=== PATIENT | male | born 1990 | race Caucasian/White ===

== ENCOUNTER 2022-01-10 21:14 | Emergency (ER) | payer MEDICAID, SELFPAY ==
[2022-01-10 21:14] VITALS: BP 110/78; PULSE 49; RESP 16; TEMP 35.8; O2SAT 100; BMI 19.3
--- NOTE | 2022-01-10 21:15 | CT_ITS ---
PROCEDURE INFORMATION: Exam: CT Abdomen And Pelvis With Contrast Exam date and time: 01/10/2022 9:31 PM Age: 31 years old Clinical indication: Abdominal pain TECHNIQUE: Imaging protocol: Computed tomography of the abdomen and pelvis with contrast. Radiation optimization: All CT scans at this facility use at least one of these dose optimization techniques: automated exposure control; mA and/or kV adjustment per patient size (includes targeted exams where dose is matched to clinical indication); or iterative reconstruction. Contrast material: ISOVUE; Contrast volume: 75 ml; Contrast route: IV; COMPARISON: ABDPELW/O CT ABD PELVIS W/O CONTRAST 05/29/2015 10:11 PM FINDINGS: Diaphragm: Small hiatal hernia. Liver: Normal. No mass. Gallbladder and bile ducts: Normal. No calcified stones. No ductal dilation. Pancreas: Normal. No ductal dilation. Spleen: Normal. No splenomegaly. Adrenal glands: Normal. No mass. Kidneys and ureters: Normal. No hydronephrosis. Stomach and bowel: Unremarkable. No obstruction. No mucosal thickening. Appendix: No evidence of appendicitis. Intraperitoneal space: Unremarkable. No free air. No significant fluid collection. Vasculature: Unremarkable. No abdominal aortic aneurysm. Lymph nodes: Unremarkable. No enlarged lymph nodes. Urinary bladder: Unremarkable as visualized. Reproductive: Unremarkable as visualized. Bones/joints: Unremarkable. No acute fracture. Soft tissues: There is a a radiopaque density with associated artifact in the subcutaneous tissues of the left anterior abdominal wall just superior and lateral to the umbilicus. Clinically correlate. Findings suggestive of a retained metallic foreign body. IMPRESSION: 1. Small hiatal hernia. 2. Retained metallic foreign body within the subcutaneous tissues superficial to the left anterior abdominal wall. Clinically correlate.
--- NOTE | 2022-01-10 21:15 | XR_ITS ---
PROCEDURE INFORMATION: Exam: XR Chest Exam date and time: 01/10/2022 9:21 PM Age: 31 years old Clinical indication: Pain; Other: Upper abdominal; Additional info: Upper abd pain TECHNIQUE: Imaging protocol: XR of the chest. Views: 1 view. COMPARISON: CR CXR2V XR chest 2V 06/25/2018 12:42 AM FINDINGS: Lungs: Unremarkable. No consolidation. Pleural spaces: Unremarkable. No pleural effusion. No pneumothorax. Heart/Mediastinum: Unremarkable. No cardiomegaly. Bones/joints: Unremarkable. IMPRESSION: No acute findings.
--- NOTE | 2022-01-10 21:16 | [facility].EDGENADL ---
ED Disposition Clinical Impression: Marijuana use Nausea and vomiting Qualifiers: Vomiting type: unspecified Qualified Code(s): R11.2 - Nausea with vomiting, unspecified Disposition: Home, Self-Care Condition on Discharge: Fair Additional Instructions: You have been evaluated for nausea and vomiting. This is possibly due to marijuana use. Your potassium level is low today. Please take 20 mg of potassium daily. Eat a balanced diet. Take daily multivitamin. Zofran for nausea. Avoid marijuana. Follow-up with your primary care doctor. Return to the emergency department for any new or worsening symptoms, persistent vomiting, abdominal pain, other concerns. Prescriptions: Potassium Chloride [Pot Chlor 20 mEq Packet] 20 meq PO DAILY #5 packet Transmission Status: Pending to [facility] 1960 Ondansetron [Zofran 4mg ODT] 4 mg PO TIDP PRN #12 tab PRN Reason: Nausea Transmission Status: Pending to [facility] 1960 Referrals: Don Leggett [Primary Care Provider] - Time of Disposition: 00:17 - Critical Care Critical Care Time: No Attestation: On , the high probability of a clinically significant, sudden or life threatening deterioration of the following system(s) required my full and direct attention, intervention and personal management. The time I documented below is in addition to time spent performing reported procedures but includes the following listed in this critical care notation. Medical Decision Making - Medical Records Medical records reviewed: Yes: I reviewed the patient's medical records. - Cornel Inquiry Pt receiving controlled substance: No Vital Signs: 01/10/22 21:14 01/10/22 23:07 Temperature 96.5 F L 97.6 F Temperature Source Rectal Oral Pulse Rate 47 L Pulse Rate [Right] 49 L Respiratory Rate 16 16 Blood Pressure 116/61 Blood Pressure [Right Arm] 110/78 Blood Pressure Mean [Right Arm] 88 Blood Pressure Source Automatic Cuff Blood Pressure Source [Right Arm] Automatic Cuff Blood Pressure Position Sitting 02 Sat by Pulse Oximetry 100 Oxygen Delivery Method Room Air Room Air - Lab Data Lab Results 01/10/22 21:15: WBC 11.1 H, RBC 4.48 L, Hgb 13.8 L, Hct 41.1 L, MCV 91.6, MCH 30.9, MCHC 33.7, RDW 13.4, Plt Count 179, MPV 9.3, Neut % (Auto) 74.9, Lymph % (Auto) 17.3, [place] % (Auto) 6.1, Eos % (Auto) 0.6, Baso % (Auto) 1.1, Neut # (Auto) 8.3 H, Lymph # (Auto) 1.9, [place] # (Auto) 0.7, Eos # (Auto) 0.1, Baso # (Auto) 0.1 01/10/22 21:15: Sodium 142, Potassium 3.1 L, Chloride 107, Carbon Dioxide 26, Anion Gap 12.1, BUN 22 H, Creatinine 0.90, Estimated Creat Clear 102, Estimated GFR 98, Est GFR ( Amer) 118, Glucose 112 H, Calcium 9.0, Total Bilirubin 0.9, AST 37, ALT 36, Alkaline Phosphatase 86, Total Protein 7.0, Albumin 4.2, Globulin 2.8, Albumin/Globulin Ratio 1.5, Lipase 149 01/10/22 21:15: Lactate 2.3 H 01/10/22 21:15: Procalcitonin 0.039, TSH 4.05 01/10/22 21:29: Urine Color Yellow, Urine Appearance Clear, Urine pH 8.5, Ur Specific [place] 1.020, Urine Protein Trace, Urine Glucose (UA) Negative, Urine Ketones 2+, Urine Blood Negative, Urine Nitrate Negative, Urine Bilirubin Negative, Urine Urobilinogen 0.2, Ur Leukocyte Esterase Negative, Urine WBC Occasional, Amorphous Sediment Trace 01/10/22 21:29: Urine Opiates Screen Negative, Urine Methadone Screen Negative, Ur Barbituates Screen Negative, Ur Phencyclidine Scrn Negative, Ur Amphetamines Screen Negative, U Benzodiazepines Scrn Negative, Urine Cocaine Screen Negative, U Marijuana (THC) Screen Positive H 01/10/22 21:50: VBG pH 7.50 H, VBG pCO2 28.8 L, VBG pO2 90.5 H, VBG HCO3 22.1 L, VBG Total CO2 22.9 L, VBG O2 Saturation 98.2 H, VBG Base Excess -1.1 Result diagrams: 01/10/22 21:15 01/10/22 21:15 Orders (Tests/Meds): ED MEDICATIONS Discontinued Medications Generic Name Dose Route Start Last Admin Trade Name Freq PRN Reason Stop Dose Admin Diphenhydramine HCl 12.5 mg 01/10/22 22:56 01/10/22 22:5
[2022-01-10 21:55] LABS: Basophils # 0.1 K/mm3 (0-0.2); Basophils % 1.1 % (0.1-2.0); Eosinophils # 0.1 K/mm3 (0.0-0.4); Eosinophils % 0.6 % (0.1-12.0); Hematocrit 41.1 % (42.0-52.0); Hemoglobin 13.8 g/dL (14.1-18.0); Lymphocytes # 1.9 K/mm3 (0.7-4.5); Lymphocytes % 17.3 % (10-50); Mean Corpuscular HGB Conc 33.7 g/dL (31.8-35.4); Mean Corpuscular Hemoglobin 30.9 pg (27.0-31.2); Mean Corpuscular Volume 91.6 fl (80-94); Mean Platelet Volume 9.3 fl (7.4-10.4); Monocytes # 0.7 K/mm3 (0.1-1.0); Monocytes % 6.1 % (1.7-9.3); Neutrophils # 8.3 K/mm3 (1.8-7.8); Neutrophils % 74.9 % (37.0-80.0); Platelet Count 179 K/mm3 (142-424); Red Blood Count 4.48 M/mm3 (4.60-6.20); Red Cell Distribution Width 13.4 % (11.5-17.5); White Blood Count 11.1 K/mm3 (4.8-10.8)
[2022-01-10 21:55] LABS: Microscopic, Urine URINE MICROSCOPIC (MICROSCOPIC)
[2022-01-10 21:56] LABS: Chloride 107 mmol/L (98-107)
[2022-01-10 21:57] LABS: Potassium 3.1 mmoL/L (3.5-5.1); Sodium 142 mmol/L (136-145)
[2022-01-10 21:59] LABS: Alanine Aminotransferase 36 U/L (12-78); Alkaline Phosphatase 86 U/L (38-126); Aspartate Amino Transferase 37 U/L (17-59); Bilirubin,Total 0.9 mg/dl (0.2-1.3); Blood Urea Nitrogen 22 mg/dl (9-20); Creatinine Clearance Estimated 102 mL/min (50-200); Estimated Glomerular Filt Rate 98 ml/min (>60); GFR (African American) 118 ML/MIN (>60)
[2022-01-10 22:00] LABS: Albumin Level 4.2 g/dl (3.5-5.0); Albumin/Globulin Ratio 1.5 (1.1-1.8); Anion Gap 12.1 mEq/L (5-15); Carbon Dioxide 26 mmol/L (22.0-30.0); Globulin 2.8 g/dL (1.3-3.2); Glucose 112 mg/dl (74-100); Lipase 149 U/L (23-300)
[2022-01-10 22:02] VITALS: BP 110/47; PULSE 47; RESP 10; O2SAT 99
[2022-01-10 22:03] LABS: Appearance,Urine CLEAR (Clear); Bilirubin,Urine Negative (Negative); Blood, Urine Negative (Negative); Color,Urine YELLOW (Yellow); Glucose,Urine (UA) Negative (Negative); Ketones,Urine 2+ (Negative); Leukocyte Esterase,Urine Negative (Negative); Nitrate,Urine Negative (Negative); PH,Urine 8.5 (5.0-8.5); Protein,Urine TRACE (Negative); Urobilinogen,Urine 0.2 EU/dl (0.2)
[2022-01-10 22:13] LABS: Lactic Acid 2.3 mmol/L (0.7-2.1)
[2022-01-10 22:16] LABS: Barbiturates Screen,Urine Negative ng/ml (<200)
[2022-01-10 22:17] LABS: Amorphous Sediment,Urine Trace /lpf; Amphetamine/Metha Screen,Urine Negative ng/ml (<1000); Benzodiazepines Screen,Urine Negative ng/ml (<200); WBC,Urine Occasional #/hpf (0-3)
[2022-01-10 22:17] LABS: VBG Base Excess -1.1 mmol/L (-2.4-2.3); VBG HCO3 22.1 mmol/L (23-30); VBG Oxygen Saturation 98.2 % (50-70); VBG PCO2 28.8 mmol/L (35-51); VBG PO2 90.5 mmol/L (28-40); VBG Total CO2 22.9 mmol/L (23-27)
[2022-01-10 22:18] LABS: Cannabinoid Screen,Urine Positive ng/ml (<50); Methadone Screen,Urine Negative ng/ml (<300)
[2022-01-10 22:19] LABS: Cocaine Screen,Urine Negative ng/ml (<300)
[2022-01-10 22:20] LABS: Opiate Screen,Urine Negative ng/ml (<300); Phencyclidine Screen,Urine Negative ng/ml (<25)
[2022-01-10 22:22] LABS: Procalcitonin 0.039 ng/mL (0.0-2.0)
--- NOTE | 2022-01-10 22:27 | ECG_ITS ---
APPROVED REPORT Exam: Resting ECG HR:52 bpm ECG Measurements Heart Rate 52 AXES VT 138 P 81 QRSd 102 QRS 78 QT 426 T 83 QTc 406 Conclusion SINUS BRADYCARDIA POSSIBLE RIGHT VENTRICULAR CONDUCTION DELAY [RSR (QR) IN V1/V2] BORDERLINE ECG UNCONFIRMED REPORT Electronically signed by : Lopez Noyola MD 01/12/2022 19:48:53
[2022-01-10 22:36] LABS: Thyroid Stimulating Hormone 4.05 uIU/mL (0.465-4.68)
[2022-01-10 23:07] VITALS: BP 116/61; PULSE 47; RESP 16; TEMP 36.4; O2SAT 100
[2022-01-10 23:13] VITALS: BP 116/61; PULSE 49; RESP 14; O2SAT 100
[2022-01-10 23:30] VITALS: BP 99/36; PULSE 64; RESP 12; O2SAT 99
[2022-01-11] VITALS: BP 84/58; PULSE 50; RESP 10; O2SAT 100
== END 2022-01-11 00:57 | disposition home or self-care (01) ==
PROVIDERS: Emergency Provider Emergency Medicine; PCP Pediatrics
DX: R10.10 Upper abdominal pain, unspecified (principal); R11.2 Nausea with vomiting, unspecified; F12.10 Cannabis abuse, uncomplicated
CPT/HCPCS: 71045; 74177; 80053; 80305; 81001; 82803; 83605; 83690; 84145; 84443; 85025; 93005; 96365; 96375; 99284; J2405; Q9967

== ENCOUNTER 2022-07-23 09:41 | Emergency (ER) | payer MEDICAID, SELFPAY ==
[2022-07-23 09:53] VITALS: BP 127/61; PULSE 62; RESP 16; O2SAT 100; BMI 18.1
[2022-07-23 10:02] VITALS: BP 127/61; PULSE 62; RESP 16; TEMP 36.8; O2SAT 100; BMI 18.1
--- NOTE | 2022-07-23 10:49 | EXP.UTC ---
Discharge Plan Disposition Patient Disposition: Home, Self-Care Condition: Good Prescriptions Prescriptions: New ondansetron 4 mg Tablet,Disintegrating 4 mg PO Q8H PRN (Reason: Nausea) Qty: 20 0RF dicyclomine 10 mg capsule 10 mg PO TID PRN (Reason: abdominal cramping) Qty: 20 0RF No Action escitalopram oxalate 10 MG tablet 10 mg PO DAILY ondansetron 4 MG tablet,disintegrating 4 mg PO TIDP PRN (Reason: Nausea) Qty: 12 0RF potassium chloride 20 MEQ packet 20 meq PO DAILY Qty: 5 0RF Referrals Follow up/Referrals: Don Leggett [Primary Care Provider] - See instructions Activity Restrictions/Add. Instructions Additional Instructions/Restrictions: Drink plenty of fluids. Take tylenol for pain or fever. Take the medications as directed. Follow up with your regular doctor. GO TO THE ER FOR ANY WORSENING SYMPTOMS If your symptoms worsen or continue, please return and go through the ER for further evaluation. Clinical Impressions Clinical Impression: Abdominal pain Instructions Patient Instructions: DI for Viral Gastroenteritis -- Adult Discharge ED Provider: Noah Varela [facility] General Stated complaint: vomiting, unable to eat or drink Mode of Arrival: Ambulatory Source of Information: Patient Limitations: No Limitations Time Seen by Provider: 07/23/22 10:46 Description of Symptoms (Recalled from Triage Doc. by RN): PATIENT C/O NAUSEA AND VOMITING SINCE SATURDAY MORNING HEENT Symptoms (Recalled from RN notes): No Resp Symptoms (Recalled from RN notes): No Skin Symptoms (Recalled from RN notes): No MS Symptoms (Recalled from RN notes): No Functional Status (Recalled from RN notes): WNL History of Present Illness Provider Complaint: He c/o n/v since yesterday. He has had abdominal cramping, but no diarrhea. He had a normal bm last night. Related Data Home Medications Medication Instructions Recorded Confirmed escitalopram oxalate 10 mg tablet 10 mg PO DAILY bipolar 01/10/22 01/10/22 Previous Rx's Medication Instructions Recorded ondansetron 4 mg disintegrating 4 mg PO TIDP PRN Nausea #12 tabs 01/11/22 tablet potassium chloride 20 mEq oral 20 meq PO DAILY #5 packets 01/11/22 packet dicyclomine 10 mg capsule 10 mg PO TID PRN abdominal 07/23/22 cramping #20 caps ondansetron 4 mg disintegrating 4 mg PO Q8H PRN Nausea #20 tabs 07/23/22 tablet Allergies Allergy/AdvReac Type Severity Reaction Status Date / Time NO KNOWN ALLERGIES Allergy Uncoded 10/08/17 14:07 Worker's Comp Is this a Worker's Comp case?: No PFSH PFSH Social History Smoking Status: Current every day smoker tobacco type: cigarettes alcohol intake: never substance use type: marijuana current occupational status: employed Travel in the last 8 weeks: None ROS Obtained: Yes All systems reviewed & no additional complaints except as documented Constitutional Constitutional: Denies chills, Denies fever(s) and Reports poor appetite ENT Ears, Nose, Mouth, and Throat: Denies dizziness and Denies sore throat Cardiovascular Cardiovascular: Denies dyspnea Respiratory Respiratory: Denies chest congestion, Denies cough and Denies dyspnea Gastrointestinal Gastrointestingal: Reports as per HPI Genitourinary Male Genitourinary: Denies hematuria, Denies urinary frequency, Denies urinary hesitancy, Denies urinary incontinence and Denies urinary urgency Musculoskeletal Musculoskeletal: Denies arthralgias Integumentary/Breasts Skin/Breast: Denies rash Neurologic Neurologic: Denies dizziness Physical Exam General General appearance: alert and in no apparent distress Head Head exam: atraumatic and normocephalic Eye Eye exam: Present normal appearance, PERRL and EOMI ENT ENT exam: Present normal exam, normal oropharynx, mucous membranes moist, TM's normal bilaterally and normal external ear exam Neck Neck exam: Present n
[2022-07-23 11:04] LABS: UTC Strep Screen (Rapid) Negative (Negative)
[2022-07-23 11:19] VITALS: BP 127/61; PULSE 62; RESP 16; TEMP 36.8; O2SAT 100
== END 2022-07-23 11:23 | disposition home or self-care (01) ==
LOC: ER 09:54 → UTC 09:55
PROVIDERS: Emergency Provider Nurse Practitioner Family; PCP Pediatrics
DX: R11.2 Nausea with vomiting, unspecified (principal); R10.9 Unspecified abdominal pain; F17.210 Nicotine dependence, cigarettes, uncomplicated; Z20.822 Contact with and (suspected) exposure to COVID-19; Z79.899 Other long term (current) drug therapy
CPT/HCPCS: 87880; 99213; C9803; G0463; U0003; U0005